=== PATIENT | female | born 1955 | race Caucasian/White ===

== ENCOUNTER 2025-03-12 12:47 | Outpatient (RCR) | payer MEDICARE, OTHER, SELFPAY ==
--- NOTE | 2025-03-12 14:39 | OPREHPOC ---
Outpatient Therapy Plan of Care This is a Multidisciplinary Plan of Care that may contain components documented by all disciplines (PT, OT, and ST.) PT Problem 1 PT Problem #1 Knowledge Deficit PT Goal 1 Goal / Goal Update Independent and compliant with HEP. Target Visit 2 PT Problem 2 PT Problem #2 Impaired Strength PT Goal 1 Goal / Goal Update Pt to improve bilat gross LE strength to 5/5. Target Visit 12 PT Problem 3 PT Problem #3 Impaired Range of Motion PT Goal 1 Goal / Goal Update Pt to achieve neutral ankle dorsiflexion bilaterally. Pt to improve bilat great toe ext to 60 deg. Target Visit 12 PT Problem 4 PT Problem #4 Impaired Functional Mobility PT Goal 1 Goal / Goal Update Pt to report 20% reduction in perceived disability on LEFS. Pt to report improved ability to stand and walk around her house. Target Visit 12 PT Problem 5 PT Problem #5 Impaired Gait PT Goal 1 Goal / Goal Update Pt to demonstrate improved ambulation quality including improved heel strike, step length, and great toe ext. Target Visit 12
--- NOTE | 2025-03-12 14:39 | PTOPEVAL1 ---
Assessment and note entered by Ester Caro, PT Evaluation Information Assessment Status Evaluation ICD-10 Condition Codes (PT) Pain in right ankle and joints of right foot M25. 571 Other ICD-10 Condition Codes ( M72.2 PT) Onset 02/26/2025 Subjective Information Pt reports she's always had flat feet and she started having pain in her foot when she was in her 40s. She states she went to the doctor initially who told her to take pain meds and that they can't fix her feet. She ended up going to the [employer] and got some arch supports that helped a lot over the years, however a couple months ago she started feeling like they haven't been working. She feels like she can't walk correctly and do physical activity because of her pain. She reports it feels like she's walking on a nail all the time. She went to PT in [place] who told her to come here to get some dry needling . She did get an x-ray in [place] which showed a moderately sized bone spur. Her goal is to decrease her pain to be able to do more physical tasks in her life. Reported Pain Level Pain Score 5: Self Report Assessment PT Clinical Summary Mrs. Marcus is a 70 yo female presenting to skilled PT evaluation with a diagnosis of R plantar fasciitis. She demonstrates limitations in bilateral ankle/foot AROM and PROM as well as hip weakness and gait deficits including excessive foot pronation and out toeing, lack of heel strike and great toe extension during stance phase. Her pain and physical impairments cause significant difficulty with walking, standing, performing household tasks and taking care of her . Skilled PT intervention is indicated to address these deficits to improve her ability to perform daily functional tasks with less pain. Plan of Care Interventions Electrical Stimulation,Gait Training,Hot Pack/Cold Pack,Manual Therapy,Neuro Re-education,Patient/ Caregiver Education,Therapeutic Activities, Therapeutic Exercise,Self-Care/Home Management PT Services Indicated Yes Treatment Frequency and 3x/week for 12 visits Duration These treatments will address the objective and functional deficits as defined above. The patient will be advanced safely and appropriately in order for the patient to progress towards his/her prior level of function. Additional exercises will be introduced and as well as a comprehensive home exercise program upon discharge, if needed, ?to ensure carryover of functional gains achieved in the clinic. This treatment plan has been reviewed and agreement upon by the patient.
--- NOTE | 2025-04-04 10:43 | OPREHPOC ---
Outpatient Therapy Plan of Care This is a Multidisciplinary Plan of Care that may contain components documented by all disciplines (PT, OT, and ST.) PT Problem 1 PT Problem #1 Knowledge Deficit PT Goal 1 Goal / Goal Update Independent and compliant with HEP. Target Visit 2 Progress Met PT Problem 2 PT Problem #2 Impaired Strength PT Goal 1 Goal / Goal Update Pt to improve bilat gross LE strength to 5/5. Target Visit 12 Progress Not Met PT Problem 3 PT Problem #3 Impaired Range of Motion PT Goal 1 Goal / Goal Update Pt to achieve neutral ankle dorsiflexion bilaterally. Pt to improve bilat great toe ext to 60 deg. Target Visit 12 PT Problem 4 PT Problem #4 Impaired Functional Mobility PT Goal 1 Goal / Goal Update Pt to report 20% reduction in perceived disability on LEFS. Pt to report improved ability to stand and walk around her house. met Target Visit 12 Progress Partially Met PT Problem 5 PT Problem #5 Impaired Gait PT Goal 1 Goal / Goal Update Pt to demonstrate improved ambulation quality including improved heel strike, step length, and great toe ext. Target Visit 12
--- NOTE | 2025-04-04 10:43 | PTOPPROGNS ---
Assessment and note entered by JT File, PT Evaluation Information Assessment Status Progress ICD-10 Condition Codes (PT) Pain in right ankle and joints of right foot M25. 571 Other ICD-10 Condition Codes ( M72.2 PT) Onset 02/26/2025 Subjective Information patient reports she is feeling much better lately. she reports she has had no pain in the R foot/ankle for a week or better. she reports she is compliant with her HEP at home. Assessment PT Clinical Summary mrs. eckert presents to skilled PT for her 10th skilled PT visit today. she reports less pain overall, and improved functional activity at home, despite her LEFS showing a worse score. she has no pain today, and has had no pain for a week. she would benefit from continued skilled PT to address her objective/functional deficits that remain to achieve goals and return to her prior level functional activity performance/quality of life. Plan of Care Interventions Electrical Stimulation,Gait Training,Hot Pack/Cold Pack,Manual Therapy,Neuro Re-education,Patient/ Caregiver Education,Therapeutic Activities, Therapeutic Exercise,Self-Care/Home Management PT Services Indicated Yes Treatment Frequency and continue per initial POC Duration These treatments will address the objective and functional deficits as defined above. The patient will be advanced safely and appropriately in order for the patient to progress towards his/her prior level of function. Additional exercises will be introduced and as well as a comprehensive home exercise program upon discharge, if needed, ?to ensure carryover of functional gains achieved in the clinic. This treatment plan has been reviewed and agreement upon by the patient.
--- NOTE | 2025-04-09 11:00 | OPREHPOC ---
Outpatient Therapy Plan of Care This is a Multidisciplinary Plan of Care that may contain components documented by all disciplines (PT, OT, and ST.) PT Problem 1 PT Problem #1 Knowledge Deficit PT Goal 1 Goal / Goal Update Independent and compliant with HEP. Target Visit 2 Progress Met PT Problem 2 PT Problem #2 Impaired Strength PT Goal 1 Goal / Goal Update Pt to improve bilat gross LE strength to 5/5. Target Visit 12 Progress Partially Met PT Problem 3 PT Problem #3 Impaired Range of Motion PT Goal 1 Goal / Goal Update Pt to achieve neutral ankle dorsiflexion bilaterally. -met Pt to improve bilat great toe ext to 60 deg. -not met Target Visit 12 Progress Partially Met PT Problem 4 PT Problem #4 Impaired Functional Mobility PT Goal 1 Goal / Goal Update Pt to report 20% reduction in perceived disability on LEFS. -met Pt to report improved ability to stand and walk around her house. met Target Visit 12 Progress Met PT Problem 5 PT Problem #5 Impaired Gait PT Goal 1 Goal / Goal Update Pt to demonstrate improved ambulation quality including improved heel strike, step length, and great toe ext. Target Visit 12 Progress Met
--- NOTE | 2025-04-09 11:00 | PTOPDC ---
Assessment and note entered by Ester Caro, PT Evaluation Information Assessment Status Discharge ICD-10 Condition Codes (PT) Pain in right ankle and joints of right foot M25. 571 Other ICD-10 Condition Codes ( M72.2 PT) Onset 02/26/2025 Subjective Information Pt reports she feels good and has no pain. She continues to do all her stretches and exercises daily and feels like they have been helping. Reported Pain Level Pain Score 0: Self Report Assessment PT Clinical Summary Mrs. Marcus has attended 12 skilled PT visits addressing R foot/ankle pain. She demonstrates improvements in R ankle/foot strength and ROM, and she has also made improvements in her gait and ability to walk around her home. She has met all goals relating to foot/ankle deficits and while she does still demonstrate hip mm weakness, she is independent with her HEP and appropriate for discharge from skilled PT to continue strengthening on her own. Plan of Care PT Services Indicated No
== END 2025-04-09 18:43 | disposition home or self-care (01) ==
LOC: CHSPT 12:47
PROVIDERS: Visit Provider Nurse Practitioner Family
DX: M72.2 Plantar fascial fibromatosis (principal)
CPT/HCPCS: 97110; 97112; 97140; 97150; 97161; 97530